=== PATIENT | male | born 1955 | race Caucasian/White ===

== ENCOUNTER → 2024-09-24 | Outpatient (CLI) | payer MEDICARE, OTHER, SELFPAY ==
--- NOTE | 2024-09-24 | XR_ITS ---
Examination: Lumbar spine, 5 views Technique: Lumbar spine AP, lateral, coned lateral lower lumbar spine, bilateral obliques 5 views Exam date and time: September 24, 2024 1230 hours INDICATIONS: Back pain beginning one month ago. FINDINGS: Lower lumbar dextroscoliosis 10 degrees Prominent lumbar spondylosis Advanced diffuse facet arthropathy No lumbar fracture Diffuse moderate to advanced lumbar degenerative disc disease, most severe at L4-L5 IMPRESSION: Diffuse moderate to advanced lumbar degenerative disc disease, most severe at L4-L5 with spinal stenosis
--- NOTE | 2024-09-24 | XR_ITS ---
EXAMINATION: Ankle, right 3 views . Technique: Ankle AP, oblique, lateral 3 views Date and time of exam: September 24, 2024 12:30 PM INDICATIONS: Right ankle pain beginning one month ago. FINDINGS: No fracture or dislocation Moderate osteopenia Moderate osteoarthritis tibiotalar joint IMPRESSION: Moderate osteoarthritis tibiotalar joint
== END | disposition home or self-care (01) ==
LOC: CDIM 11:03
PROVIDERS: PCP Physician Assistant; Referring Provider Physician Assistant; Visit Provider Physician Assistant
DX: M51.369 Other intervertebral disc degeneration, lumbar region without mention of lumbar back pain or lower extremity pain (principal); M48.061 Spinal stenosis, lumbar region without neurogenic claudication; M19.071 Primary osteoarthritis, right ankle and foot
CPT/HCPCS: 72110; 73610

== ENCOUNTER → 2025-04-06 | Outpatient (CLI) | payer MEDICARE, OTHER, SELFPAY ==
--- NOTE | 2025-04-06 16:36 | XR_ITS ---
Examination: PA lateral chest 2 views TECHNIQUE: Upright PA lateral chest 2 views Date and time: April 06, 2025, 1704 hours INDICATIONS: Preop FINDINGS: Normal heart size. Lungs are clear. Moderate thoracic spondylosis IMPRESSION: No active disease.
== END | disposition home or self-care (01) ==
PROVIDERS: PCP Physician Assistant; Referring Provider Physician Assistant; Visit Provider Physician Assistant
DX: Z01.818 Encounter for other preprocedural examination (principal); M48.061 Spinal stenosis, lumbar region without neurogenic claudication; I10 Essential (primary) hypertension; M54.16 Radiculopathy, lumbar region
CPT/HCPCS: 71046